=== PATIENT | male | born 1980 | race Caucasian/White ===

== ENCOUNTER 2020-12-07 19:44 | Emergency (ER) | payer BC, OTHER ==
[~2020-12-07] VITALS: Ht 170.2 cm; Wt 86.2 kg
[2020-12-07] MEDS ORDERED: TRAMADOL HCL 50 MG TAB PO ONE (20:15)
[2020-12-07] MEDS ORDERED: TRAMADOL/APAP 37.5MG-325MG TAB ONE (20:16)
== END 2020-12-07 22:00 | disposition home or self-care (01) ==
LOC: ER 20:05
DX: S93.401A Sprain of unspecified ligament of right ankle, initial encounter (principal); W11.XXXA Fall on and from ladder, initial encounter
CPT/HCPCS: 99283